=== PATIENT | male | born 1980 | race Caucasian/White ===

== ENCOUNTER 2016-07-31 11:05 | Emergency (ER) | payer MEDICARE, MEDICAID ==
[~2016-07-31 11:05] MED LIST: MAPA325T3 PO
[2016-07-31 11:40] LABS: BASO % 0.5 % (0.0-1.0); EOS # 0.1 K/mm3 (0.0-0.50); EOS % 0.8 % (0.0-3.0); LARGE UNSTAINED CELL # 0.2 K/mm3 (0.0-0.4); LARGE UNSTAINED CELL % 2.3 % (0.0-4.0); LYMPH % 35.2 % (24.0-44.0); MEAN CORPUSCULAR HEMOGLOBIN 30.1 pg (27.0-33.0); MEAN CORPUSCULAR HGB CONC 34.7 g/dl (32.0-36.5); MEAN CORPUSCULAR VOLUME 86.7 fl (80.0-96.0); MONO # 0.4 K/mm3 (0.0-0.8); MONO % 4.9 % (0.0-5.0); NEUTROPHILS # 4.6 K/mm3 (1.8-7.7); NEUTROPHILS % 56.3 % (36.0-66.0); PLATELET COUNT, AUTOMATED 463 k/mm3 (150-450); RED CELL DISTRIBUTION WIDTH 13.1 % (11.5-14.5); WHITE BLOOD COUNT 8.1 K/mm3 (4.0-10.0)
[2016-07-31 11:51] LABS: ALBUMIN 3.7 GM/DL (3.2-5.2); ALBUMIN/GLOBULIN RATIO 0.77 (1.00-1.93); ALKALINE PHOSPHATASE 135 U/L (45-117); ALT/SGPT 35 U/L (12-78); ANION GAP 8 MEQ/L (8-16); AST/SGOT 15 U/L (15-37); BILIRUBIN,DIRECT 0.1 MG/DL (0.0-0.2); BILIRUBIN,TOTAL 0.4 MG/DL (0.2-1.0); BLOOD UREA NITROGEN 10 MG/DL (7-18); CALCIUM LEVEL 9.3 MG/DL (8.5-10.1); CARBON DIOXIDE LEVEL 26 MEQ/L (21-32); CHLORIDE LEVEL 106 MEQ/L (98-107); CREATININE FOR GFR 0.79 MG/DL (0.70-1.30); FREE T4 1.08 NG/DL (0.76-1.46); GLOMERULAR FILTRATION RATE > 60.0 (>60); GLUCOSE, FASTING 103 MG/DL (70-105); POTASSIUM SERUM 4.2 MEQ/L (3.5-5.1); SODIUM LEVEL 140 MEQ/L (136-145); TOTAL PROTEIN 8.5 GM/DL (6.4-8.2)
--- NOTE | 2016-07-31 12:26 | REP ---
AP PORTABLE SEATED CHEST: 07/31/2016 CLINICAL HISTORY: Chest pain in a 35-year-old male. COMPARISON: 05/22/2016 chest x-ray. FINDINGS: Lungs are less well inflated than on the previous study. The level of inflation and AP portable technique exaggerate heart size. There is no gross cardiomegaly. Some venous hypertension may be present but there is no interstitial edema, alveolar edema, definite effusion or dense consolidation. The aorta is normal for age. Airway is intact. Visualized bones intact. No free air. IMPRESSION: 1. Hypoinflated chest with some crowded markings but no gross cardiomegaly or reginaldo edema. No dense consolidation or effusion. Signed by Compa Hanks MD 07/31/2016 03:57 P
[2016-07-31] MEDS ORDERED: ASPIRIN 81 MG CHEW TABLET PO ONE (12:45)
[2016-07-31 13:34] VITALS: BP 177/103
--- NOTE | 2016-07-31 17:54 | ECGEPIP ---
Stationary ECG Study [facility] - ED Test Date: 2016-07-31 Pat Name: ADRIANE SANTANA Department: Room: - Gender: M Audio Video Technician: sb : 1980 Requested By: José Piper Order Number: [id number] Reading MD: José Piper Measurements Intervals Randall Rate: 84 P: 20 IA: 132 QRS: -2 QRSD: 117 T: 1 QT: 367 QTc: 435 Interpretive Statements SINUS RHYTHM WITH MARKED SINUS ARRHYTHMIA MODERATE INTRAVENTRICULAR CONDUCTION DELAY NO OLD ECG FOR COMPARISON Electronically Signed On 07-31-2016 17:53:54 EDT by José Piper
== END 2016-07-31 13:57 | disposition left against medical advice (07) ==
LOC: EDBD 11:05 → M ED 12:01
DX: I10 Essential (primary) hypertension (principal); R07.89 Other chest pain
CPT/HCPCS: 36415; 71010; 80048; 80076; 82550; 82553; 84439; 84443; 84484; 85025; 85379; 93005; 93041; 94760; 99285; G0463

== ENCOUNTER → 2016-09-11 | Outpatient (CLI) | payer MEDICARE, MEDICAID | LOC: M LAB 10:32 | PROVIDERS: ATTEND Student in an Organized Health Care Education/Training Program | DX: I10 Essential (primary) hypertension (principal) ==

== ENCOUNTER → 2017-03-05 | Outpatient (REF) | payer MEDICARE, MEDICAID ==
[2017-03-05 14:38] LABS: ESTIMATED AVERAGE GLUCOSE 126 MG/DL (60-110)
== END ==
LOC: M SFHCPLAZ 11:28
DX: Z13.1 Encounter for screening for diabetes mellitus (principal); Z79.899 Other long term (current) drug therapy
CPT/HCPCS: 83036

== ENCOUNTER → 2018-04-29 | Outpatient (REF) | payer MEDICARE, MEDICAID ==
[2018-04-29 12:32] LABS: BLOOD UREA NITROGEN 17 MG/DL (7-18); CALCIUM LEVEL 8.8 MG/DL (8.5-10.1); CARBON DIOXIDE LEVEL 26 MEQ/L (21-32); CHLORIDE LEVEL 108 MEQ/L (98-107); CHOLESTEROL LEVEL 195 MG/DL (<200); CREATININE FOR GFR 0.78 MG/DL (0.70-1.30); GLOMERULAR FILTRATION RATE > 60.0 (>60); GLUCOSE, FASTING 103 MG/DL (70-100); HDL CHOLESTEROL 37 MG/DL (>40); LDL CHOLESTEROL 126 MG/DL (<100); NON-HDL-C 158 MG/DL; POTASSIUM SERUM 4.3 MEQ/L (3.5-5.1); SODIUM LEVEL 140 MEQ/L (136-145); TRIGLYCERIDES LEVEL 161 MG/DL (<150)
== END ==
LOC: M SFHCPLAZ 09:39
PROVIDERS: ATTEND Family Medicine
DX: I10 Essential (primary) hypertension (principal); E78.5 Hyperlipidemia, unspecified

== ENCOUNTER → 2018-05-06 | Outpatient (REF) | payer MEDICARE, MEDICAID ==
[2018-05-06 16:43] LABS: HEMOGLOBIN A1c 5.9 %
== END ==
LOC: M SFHCPLAZ 13:20
PROVIDERS: ATTEND Family Medicine
DX: R73.09 Other abnormal glucose (principal)

== ENCOUNTER → 2023-03-18 | Outpatient (REF) | payer MEDICARE, MEDICAID ==
[~2023-03-18] MED LIST changes: +ACET325T42 PO; -MAPA325T3 PO
[2023-03-18 13:09] LABS: BLOOD UREA NITROGEN 10 MG/DL (9-23); CALCIUM LEVEL 8.9 MG/DL (8.5-10.1); CARBON DIOXIDE LEVEL 23 MMOL/L (20-31); CHLORIDE LEVEL 105 MMOL/L (98-107); CHOLESTEROL LEVEL 146 MG/DL (<200); CHOLESTEROL RISK RATIO 4.74 (<5); CREATININE FOR GFR 0.78 MG/DL (0.70-1.30); GLOMERULAR FILTRATION RATE > 60.0 (>60); GLUCOSE, FASTING 93 MG/DL (60-100); HDL CHOLESTEROL 30.8 MG/DL (>40); LDL CHOLESTEROL 90.6 MG/DL (<100); NON-HDL-C 115.2 MG/DL; POTASSIUM SERUM 4.5 MMOL/L (3.5-5.1); SODIUM LEVEL 136 MMOL/L (136-145); TRIGLYCERIDES LEVEL 123 MG/DL (<150)
[2023-03-18 13:11] LABS: THYROID STIMULATING HORMONE 0.984 uIU/ML (0.55-4.78)
[2023-03-18 13:39] LABS: HEMOGLOBIN A1c 5.6 % (4.0-6.0)
== END ==
LOC: M LAB REF 12:08
PROVIDERS: ATTEND Nurse Practitioner Family
DX: I10 Essential (primary) hypertension (principal); Z68.32 Body mass index [BMI] 32.0-32.9, adult; E66.9 Obesity, unspecified; E78.5 Hyperlipidemia, unspecified; Z86.39 Personal history of other endocrine, nutritional and metabolic disease